=== PATIENT | female | born 1980 | race Caucasian/White ===

== ENCOUNTER 2019-03-13 21:43 | Emergency (ER) | payer SELFPAY ==
[~2019-03-13] VITALS: Ht 160 cm; Wt 81.6 kg
[2019-03-13 21:59] VITALS: BP_SYST 107
[2019-03-14] MEDS ORDERED: MORPHINE 2 MG/ML INJ. SYRINGE IM ONE (01:15)
[2019-03-14] MEDS ORDERED: ACETAMINOPHEN 500 MG TABLET PO ONE (01:30)
[2019-03-14] MEDS ORDERED: LIDOCAINE 1% 10 MG/ML, 20 ML MDV INJ ONE (01:45)
[2019-03-14] MEDS ORDERED: HYDROcodone/ACETAMIN 5-325 MG TAB (NORCO/ VICODIN) PO ONE (02:15)
[2019-03-14] MEDS ORDERED: cefTRIAXone 1 GM in LIDOCAINE 1%, 20 ML MDV 2.1 ML IM ONE (02:15)
[2019-03-14] MEDS ORDERED: BACITRACIN ZINC 15 GM TOPICAL OINTMENT TP ONE (02:30)
[2019-03-14] MEDS ORDERED: BACITRACIN 1 GM OINT TP ONE (02:31)
[2019-03-14 02:35] VITALS: BP_SYST 25
== END 2019-03-14 02:32 | disposition home or self-care (01) ==
LOC: SED 21:43
DX: L02.213 Cutaneous abscess of chest wall (principal)
CPT/HCPCS: 10060; 87070; 87075; 99283; J0696; J2001

== ENCOUNTER 2019-10-13 00:11 | Emergency (ER) | payer MEDICAID ==
[~2019-10-13] VITALS: Ht 172.7 cm; Wt 79.8 kg
[2019-10-13 00:11] VITALS: BP_SYST 174
[2019-10-13] MEDS ORDERED: ONDANSETRON HCL 4 MG/2 ML VIAL IVP ONE ×2 (00:15→01:45)
[2019-10-13] MEDS ORDERED: NACL 0.9% 1,000 ML IV ONE ×2 (00:15→01:15)
[2019-10-13] MEDS ORDERED: MORPHINE 4 MG/ML INJ. SYRINGE IVP ONE (00:15)
[2019-10-13 00:36] LABS: BASOPHILS % (AUTO) 0.3 % (0.0-2.0); EOSINOPHILS # (AUTO) 0.1 K/uL (0.0-0.4); EOSINOPHILS % (AUTO) 1.1 % (0.0-4.0); HEMATOCRIT 38.7 % (36-48); HEMOGLOBIN 13.2 g/dL (12.0-16.0); LYMPHOCYTES # (AUTO) 2.2 K/uL (1.0-5.5); LYMPHOCYTES % (AUTO) 35.5 % (20.5-51.5); MEAN CORPUSCULAR HEMOGLOBIN 31 pg (27-31); MEAN CORPUSCULAR HGB CONC 34 % (32-36); MEAN CORPUSCULAR VOLUME 91 fL (79.0-98.0); MONOCYTES # (AUTO) 0.4 K/uL (0.0-1.0); MONOCYTES % (AUTO) 6.3 % (1.7-9.3); NEUTROPHILS # (AUTO) 3.6 K/uL (1.8-7.7); NEUTROPHILS % (AUTO) 56.8 % (40.0-70.0); PLATELET COUNT (AUTO) 269 K/uL (130-430); RED BLOOD CELL COUNT(AUTO) 4.28 MIL/uL (4.2-6.2); RED CELL DISTRIBUTION WIDTH 13.2 % (9.0-15.0); WHITE BLOOD COUNT (AUTO) 6.3 K/uL (4.8-10.8)
[2019-10-13 00:49] LABS: CALCIUM 9.4 mg/dL (8.4-11.0); CREATININE 1.14 mg/dL (0.55-1.30); POTASSIUM 3.5 mmol/L (3.5-5.1)
[2019-10-13 01:01] LABS: ALBUMIN 3.4 g/dL (3.4-4.8); TOTAL BILIRUBIN 0.8 mg/dL (0.0-1.0)
[2019-10-13 01:11] LABS: BILIRUBIN,URINE NEGATIVE (NEGATIVE); BLOOD, URINE 1+ (NEGATIVE); CLARITY/URINE CLEAR (CLEAR); COLOR,URINE YELLOW (YELLOW); GLUCOSE,URINE NEGATIVE (NEGATIVE); KETONES,URINE TRACE (NEGATIVE); LEUKOCYTE ESTERASE ,URINE TRACE (NEGATIVE); NITRITE, URINE NEGATIVE (NEGATIVE); PROTEIN URINE NEGATIVE (NEGATIVE); UROBILINOGEN,URINE 0.2 (0.2-1.0)
[2019-10-13 01:18] LABS: BACTERIA,URINE FEW /HPF (None Seen)
[2019-10-13] MEDS ORDERED: cefTRIAXone 1 GM IVPB PREMIX 50 ML IV ONE (02:00)
[2019-10-13] MEDS ORDERED: PROCHLORPERAZINE EDISYLATE 10 MG/2 ML VIAL IVP ONE (02:45)
[2019-10-13 03:30] VITALS: BP_SYST 101
== END 2019-10-13 03:30 | disposition home or self-care (01) ==
LOC: SED 00:11
DX: N39.0 Urinary tract infection, site not specified (principal)
CPT/HCPCS: 36415; 71045; 74176; 80053; 81000; 83605; 83690; 84702; 85025; 87040; 87086; 96365; 96375; 96376; 99285; J0696; J0780; J2270; J2405; J7030

== ENCOUNTER 2021-12-15 17:08 | Emergency (ER) | payer MEDICAID ==
[~2021-12-15] VITALS: Ht 170.2 cm; Wt 78.5 kg
[2021-12-15 17:46] VITALS: BP_SYST 128
--- NOTE | 2021-12-15 17:49 | NUR ---
Triaged pt and placed in waiting room coming from home ambulatory with steady gait. Pt is A&Ox4. C/O right finger laceration pain 08/19. Bleeding has been controlled. VSS. NKA. No known medical conditions.
--- NOTE | 2021-12-15 19:17 | NUR ---
Per import and export clerk, pt LWBS.
== END 2021-12-15 19:17 | disposition left against medical advice (07) ==
LOC: SED 17:08
DX: S61.210A Laceration without foreign body of right index finger without damage to nail, initial encounter (principal); T14.8XXA Other injury of unspecified body region, initial encounter; W26.8XXA Contact with other sharp object(s), not elsewhere classified, initial encounter; Y93.89 Activity, other specified; Y92.89 Other specified places as the place of occurrence of the external cause; Y99.8 Other external cause status; Z53.21 Procedure and treatment not carried out due to patient leaving prior to being seen by health care provider